=== PATIENT | female | born 2000 | race American Indian/Alaskan Native ===

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

== ENCOUNTER 2020-10-29 06:35 | Emergency (ER) | payer MEDICAID ==
[2020-10-29 06:57] VITALS: BP 113/69
[2020-10-29 07:22] LABS: Bilirubin,Urine NEG (Negative); Blood,Urine SM (Negative); Color,Urine Yellow (Yellow); Mucus,Urine 3+ /HPF; Urobilinogen,Urine < 2.0 mg/dL (<2.0)
[2020-10-29 08:09] LABS: Basophils % (Auto) 0.3 % (0.0-1.8); Eosinophils # (Auto) 0.1 K/mm3 (0.0-0.4); Eosinophils % (Auto) 0.8 % (0.0-4.3); Hematocrit 36.7 % (30.3-42.9); Hemoglobin 12.2 gm/dl (10.1-14.3); Lymphocytes # (Auto) 1.9 K/mm3 (1.2-5.4); Lymphocytes % (Auto) 20.6 % (13.4-35.0); Mean Corpuscular HGB Conc 33 % (30-34); Mean Corpuscular Volume 99 fl (79-97); Monocytes # (Auto) 0.4 K/mm3 (0.0-0.8); Monocytes % (Auto) 4.6 % (0.0-7.3); Platelet Count 234 K/mm3 (140-440); Red Blood Count 3.72 M/mm3 (3.65-5.03); Red Cell Distribution Width 12.8 % (13.2-15.2)
[2020-10-29 08:40] LABS: Blood Urea Nitrogen 6 mg/dL (7-17); Calcium 8.4 mg/dL (8.4-10.2); Hemolysis Index 3
[2020-10-29 09:00] LABS: BUN/Creatinine Ratio 15
--- NOTE | 2020-10-29 10:09 | Ultrasound Report ---
FIRSTTRIMESTER OBSTETRIC ULTRASOUND HISTORY: Vaginal bleeding in , spotting for one day COMPARISON: None. TECHNIQUE: Routine transabdominal OB ultrasound performed. FINDINGS: Uterus: Mildly enlarged measuring 10.4 x 7.8 x 7.8 cm. Gestational Sac: Well-defined oval shape and intrauterine in location. Yolk Sac: Normal in appearance. Fetus/Embryo: Mandan-rump length of 2.32 cm, corresponding to an estimated gestational age of 9 weeks 0 days. Embryonic/ anatomy is too small for evaluation. Embryonic/ cardiac activity: 172bpm Placenta: Too small for evaluation. Amniotic fluid volume: Subjectively appropriate for gestational age. Ovaries: The right ovary is normal in size and appearance with normal blood flow, measuring 2.9 x 1. 7 x 2.0 cm. The left ovary is normal in size and appearance with normal blood flow, measuring 3.0 x 2.0 x 2.6 cm. A slightly complex left ovarian cyst is identified measuring 1.6 x 0.5 cm. Additional findings: Small subchorionic hemorrhage is identified. IMPRESSION Early live intrauterine . Small subchorionic hemorrhage. Slightly complex left ovarian cyst measuring 1.6 x 0.5 cm. Signer Name: Ugo Albarran Jr, MD Signed: 10/29/2020 10:05 AM Workstation Name: [id number]
--- NOTE | 2020-10-29 10:13 | Emergency Department Report ---
ED Female HPI - General Chief complaint: Vaginal Bleeding Stated complaint: SPOTTING/CRAMPS/9 WKS Time Seen by Provider: 10/29/20 08:15 Source: patient Mode of arrival: Ambulatory Limitations: No Limitations - History of Present Illness Initial comments: Patient is a 20-year-old that comes to the ER with vaginal bleeding during . She states that she is 9 weeks . She gets her care from [facility]. Patient reports light vaginal bleeding. She is ambulatory nontoxic in the emergency room. She denies any vaginal discharge. She denies abdominal pain or back pain per se. Patient states she just has mild cramping. Patient received a change of shift and labs noted as ordered by overnight staff. Ultrasound ordered and pending. MD Complaint: vaginal bleeding -: Gradual Improves with: none Worsens with: none Are you Now?: Yes Associated Symptoms: denies other symptoms, vaginal bleeding - Related Data Previous Rx's Medication Instructions Recorded Last Taken Type Ondansetron [Zofran Odt] 4 mg PO Q8HR PRN #30 tab.rapdis 01/15/17 Unknown Rx Vit No.112/Folate No6 1 mg PO QDAY #30 tab.chew 01/15/17 Unknown Rx [Prenate Chewable Tablet] Allergies Allergy/AdvReac Type Severity Reaction Status Date / Time peanut Allergy Hives Verified 10/29/20 06:53 ED Review of Systems ROS: Stated complaint: SPOTTING/CRAMPS/9 WKS Other details as noted in HPI Comment: All other systems reviewed and negative ED Past Medical Hx - Past Medical History Previous Medical History?: Yes Hx Hypertension: Yes Hx Asthma: Yes - Surgical History Past Surgical History?: Yes - Family History Family history: no significant - Social History Smoking Status: Never Smoker Substance Use Type: None - Medications Home Medications: Home Medications Medication Instructions Recorded Confirmed Last Taken Type Ondansetron [Zofran Odt] 4 mg PO Q8HR PRN #30 tab.rapdis 01/15/17 Unknown Rx Vit No.112/Folate No6 1 mg PO QDAY #30 tab.chew 01/15/17 Unknown Rx [Prenate Chewable Tablet] ED Physical Exam - General Limitations: No Limitations General appearance: alert, in no apparent distress - Head Head exam: Present: atraumatic, normocephalic - Eye Eye exam: Present: normal appearance - ENT ENT exam: Present: mucous membranes moist - Neck Neck exam: Present: normal inspection - Respiratory Respiratory exam: Present: normal lung sounds bilaterally. Absent: respiratory distress - Cardiovascular Cardiovascular Exam: Present: regular rate, normal rhythm. Absent: systolic murmur, diastolic murmur, rubs, gallop - GI/Abdominal GI/Abdominal exam: Present: soft, normal bowel sounds - Extremities Exam Extremities exam: Present: normal inspection - Back Exam Back exam: Present: normal inspection - Neurological Exam Neurological exam: Present: alert, oriented X3 - Psychiatric Psychiatric exam: Present: normal affect, normal mood - Skin Skin exam: Present: warm, dry, intact, normal color. Absent: rash ED Course Vital Signs 10/29/20 06:45 Temperature 98.6 F Pulse Rate 91 H Respiratory 16 Rate Blood Pressure 113/69 [Right] O2 Sat by Pulse 100 Oximetry ED Medical Decision Making - Lab Data Result diagrams: 10/29/20 07:26 10/29/20 07:26 - Radiology Data Radiology results: report reviewed, image reviewed - Medical Decision Making Lab Results 10/29/20 10/29/20 10/29/20 Range/Units 07:00 07:26 07:26 WBC 9.0 (4.5-11.0) K/mm3 RBC 3.72 (3.65-5.03) M/mm3 Hgb 12.2 (10.1-14.3) gm/dl Hct 36.7 (30.3-42.9) % MCV 99 H (79-97) fl MCH 33 H (28-32) pg MCHC 33 (30-34) % RDW 12.8 L (13.2-15.2) % Plt Count 234 (140-440) K/mm3 Lymph % (Auto) 20.6 (13.4-35.0) % [place] % (Auto) 4.6 (0.0-7.3) % Eos % (Auto) 0.8 (0.0-4.3) % Baso % (Auto) 0.3 (0.0-1.8) % Lymph # (Auto) 1.9 (1.2-5.4) K/mm3 [place] # (Auto) 0.4 (0.0-0.8) K/mm3 Eos # (Auto) 0.1 (0.0-0.4) K/mm3 Baso # (Auto) 0.0 (0.0-0.1) K/mm3 Seg Neutrophils % 73.7 H (40.0-70.0) % Seg Neutrophils # 6.7 (1.8-7.7) K/mm3 Sodium (137-145) mmol/L Potassium (3.6-5.0) mmol/L Chloride (98-107) mmol/L Carbon Dioxide (22-30) mmol/L Anion Gap mmol/L BUN (7-17) mg/dL Creatinine (0.6-1.2) mg/dL Estimated GFR ml/min BUN/Creatinine Ratio % Glucose (65-100) mg/dL Calcium (8.4-10.2) mg/dL HCG, Quant [id number] H (0-4) mIU/mL Urine Color Yellow (Yellow) Urine Turbidity Hazy (Clear) Urine pH 6.0 (5.0-7.0) Ur Specific [place] 1.021 (1.003-1.030) Urine Protein 30 mg/dl (Negative) mg/dL Urine Glucose (UA) Neg (Negative) mg/dL Urine Ketones Neg (Negative) mg/dL Urine Blood Sm (Negative) Urine Nitrite Neg (Negative) Urine Bilirubin Neg (Negative) Urine Urobilinogen < 2.0 (<2.0) mg/dL Ur Leukocyte Esterase Tr (Negative) Urine WBC (Auto) 6.0 (0.0-6.0) /HPF Urine RBC (Auto) 21.0 (0.0-6.0) /HPF U Epithel Cells (Auto) 8.0 (0-13.0) /HPF Urine Mucus 3+ /HPF Blood Type 10/29/20 10/29/20 Range/Units 07:26 07:26 WBC (4.5-11.0) K/mm3 RBC (3.65-5.03) M/mm3 Hgb (10.1-14.3) gm/dl Hct (30.3-42.9) % MCV (79-97) fl MCH (28-32) pg MCHC (30-34) % RDW (13.2-15.2) % Plt Count (140-440) K/mm3 Lymph % (Auto) (13.4-35.0) % [place] % (Auto) (0.0-7.3) % Eos % (Auto) (0.0-4.3) % Baso % (Auto) (0.0-1.8) % Lymph # (Auto) (1.2-5.4) K/mm3 [place] # (Auto) (0.0-0.8) K/mm3 Eos # (Auto) (0.0-0.4) K/mm3 Baso # (Auto) (0.0-0.1) K/mm3 Seg Neutrophils % (40.0-70.0) % Seg Neutrophils # (1.8-7.7) K/mm3 Sodium 136 L (137-145) mmol/L Potassium 3.7 (3.6-5.0) mmol/L Chloride 101.1 (98-107) mmol/L Carbon Dioxide 24 (22-30) mmol/L Anion Gap 15 mmol/L BUN 6 L (7-17) mg/dL Creatinine 0.4 L (0.6-1.2) mg/dL Estimated GFR > 60 ml/min BUN/Creatinine Ratio 15 % Glucose 85 (65-100) mg/dL Calcium 8.4 (8.4-10.2) mg/dL HCG, Quant (0-4) mIU/mL Urine Color (Yellow) Urine Turbidity (Clear) Urine pH (5.0-7.0) Ur Specific [place] (1.003-1.030) Urine Protein (Negative) mg/dL Urine Glucose (UA) (Negative) mg/dL Urine Ketones (Negative) mg/dL Urine Blood (Negative) Urine Nitrite (Negative) Urine Bilirubin (Negative) Urine Urobilinogen (<2.0) mg/dL Ur Leukocyte Esterase (Negative) Urine WBC (Auto) (0.0-6.0) /HPF Urine RBC (Auto) (0.0-6.0) /HPF U Epithel Cells (Auto) (0-13.0) /HPF Urine Mucus /HPF Blood Type O POSITIVE Vital Signs 10/29/20 06:45 Temperature 98.6 F Pulse Rate 91 H Respiratory 16 Rate Blood Pressure 113/69 [Right] O2 Sat by Pulse 100 Oximetry Labs noted. Patient Rh+. Ultrasound noted. No ectopic. Small chorionic hemorrhage. Patient cleared for discharge after ultrasound. However, cannot be found by the RN. - Differential Diagnosis ro ectopic/ab Critical care attestation.: If time is entered above; I have spent that time in minutes in the direct care of this critically ill patient, excluding procedure time. ED Disposition Clinical Impression: Vaginal bleeding during Disposition: TO HOME OR SELFCARE Is pt being admited?: No Does the pt Need Aspirin: No Condition: Stable Additional Instructions: PELVIC REST TYLENOL FOR PAIN FOLLOW UP WITH OBGYN IN 48 HOURS FOR RECHECK REFERRAL BELOW Referrals: CHRIS HARDY MD [Staff Physician] - 3-5 Days Time of Disposition: 10:13
== END 2020-10-29 11:04 | disposition home or self-care (01) ==
LOC: ED 06:35
DX: O20.8 Other hemorrhage in early pregnancy (principal); I10 Essential (primary) hypertension; J45.909 Unspecified asthma, uncomplicated; Z3A.09 9 weeks gestation of pregnancy; Z79.899 Other long term (current) drug therapy; Z91.010 Allergy to peanuts
CPT/HCPCS: 36415; 76801; 80048; 81001; 84702; 85025; 86900; 86901

== ENCOUNTER 2021-01-25 11:26 | Emergency (ER) | payer MEDICAID | END 2021-01-25 12:36 | LOC: ED 11:26 | DX: R51.9 Headache, unspecified (principal); Z53.21 Procedure and treatment not carried out due to patient leaving prior to being seen by health care provider ==

== ENCOUNTER 2021-01-25 13:00 | Emergency (ER) | payer MEDICAID ==
[2021-01-25 13:07] VITALS: BP 130/87
[2021-01-25] MEDS ORDERED: SODIUM CHLORIDE 0.9% 1000 ML 1,000 ML IV ONE (13:31)
[2021-01-25] MEDS ORDERED: METOCLOPRAMIDE 10 MG/2 ML INJ IV ONE (13:49)
[2021-01-25] MEDS ORDERED: ACETAMINOPHEN 325 MG TAB PO ONE (13:49)
[2021-01-25] MEDS ORDERED: MAGNESIUM SULFATE 1 GM in SODIUM CHLORIDE 0.9% 50 ML IV ONE (13:49)
[2021-01-25] MEDS ORDERED: MAGNESIUM SULFATE 2 GM/50 ML BAG IV ONE (13:56)
[2021-01-25] MEDS ORDERED: diphenhydrAMINE 50 MG/ML VIAL IV ONE (13:56)
--- NOTE | 2021-01-25 13:56 | Emergency Department Report ---
ED Headache HPI - General Chief Complaint: Headache Stated Complaint: PAINFUL HEADACHE Time Seen by Provider: 01/25/21 13:16 - History of Present Illness Initial Comments: 20-year-old -[place] female that is currently 22 weeks presents to the emergency room for persistent headache she has had for about 17 hours. Patient states she has been taking acetaminophen without much relief. Patient denies any intensity of headache within the first hour or 2. Patient states that she has been having headaches daily since she has been . Patient admits to nausea and dry heaving. Patient reports she has less than 3 hours of screen time, she denies any head injury. She reports that her headache is located in the frontal area. She started having nasal drainage since his headache started. Patient reports that she will get blurred vision when her headache increases. She does report wearing glasses. Timing/Duration: constant, other Quality: severe, sharp (17 hours), throbbing Head Injury Location: frontal Recent Head Trauma: no recent headache/trauma, frequent headaches Modifying Factors: improves with: exposure to light Associated Symptoms: nausea/vomiting (No vomiting), nasal drainage, vision changes (Blurred vision). denies: fatigue, facial pain, fever/chills, flushing, loss of consciousness, sinus infection, stiff neck Allergies/Adverse Reactions: Allergies peanut Allergy (Verified 10/29/20 06:53) Hives Home Medications: Ambulatory Orders Ondansetron [Zofran Odt] 4 mg PO Q8HR PRN #30 tab.rapdis 01/15/17 Vit No.112/Folate No6 [Prenate Chewable Tablet] 1 mg PO QDAY #30 tab.chew 01/15/17 ED Review of Systems ROS: Stated complaint: PAINFUL HEADACHE Other details as noted in HPI ED Past Medical Hx - Past Medical History Previous Medical History?: Yes Hx Hypertension: No Hx Diabetes: No Hx Deep Vein Thrombosis: No Hx Renal Disease: No Hx Sickle Cell Disease: No Hx Seizures: No Hx Asthma: No Hx HIV: No Additional medical history: Vaginal delivery x 1 - Surgical History Past Surgical History?: No - Social History Smoking Status: Never Smoker Substance Use Type: None - Medications Home Medications: Home Medications Medication Instructions Recorded Confirmed Last Taken Type Ondansetron [Zofran Odt] 4 mg PO Q8HR PRN #30 tab.rapdis 07/22/17 Unknown Rx Vit No.112/Folate No6 1 mg PO QDAY #30 tab.chew 01/15/17 Unknown Rx [Prenate Chewable Tablet] ED Physical Exam - General Limitations: No Limitations General appearance: alert - Head Head exam: Present: atraumatic, normocephalic - Eye Eye exam: Present: normal appearance, EOMI - ENT ENT exam: Present: normal external ear exam - Neck Neck exam: Present: normal inspection, full ROM - Respiratory Respiratory exam: Present: normal lung sounds bilaterally. Absent: respiratory distress, accessory muscle use - Cardiovascular Cardiovascular Exam: Present: regular rate - GI/Abdominal GI/Abdominal exam: Present: soft, normal bowel sounds - Extremities Exam Extremities exam: Present: normal inspection - Back Exam Back exam: Present: normal inspection - Neurological Exam Neurological exam: Present: alert, oriented X3, normal gait - Expanded Neurological Exam Expanded Cranial nerves: EOM's Intact: Normal, Gag Reflex: Normal, Tongue Deviation: Normal, Nystagmus: Normal, Facial Sensation: Normal, Facial Palsy with Forehead Movement: Normal, Facial Palsy without Forehead Movement: Normal Cerebellar function: Finger to Nose: Normal, Heel to Mack: Normal, Romberg: Normal Upper motor neuron: Lawson Neglect: Normal, Pronator Drift: Normal, Babinski Sign: Normal, Sensory Extinction: Normal Sensory exam: Upper Extremity Light Touch: Normal, Upper Extremity Pin Prick: Normal, Upper Extremity Temperature: Normal, UE 2 Point Discrimination: Normal, Lower Extremity Light Touch: Normal, Lower Extremity Pin Prick: Normal, Lower Extremity Temperature: Normal, LE 2 Point Discrimination: Normal Motor strength exam: RUE: 4, LUE: 4, RLE: 4, LLE: 4 Best Eye Response ([place]): (4) open spontaneously Best Motor Response ([place]): (6) obeys commands Best Verbal Response ([place]): (5) oriented [place] Total: 15 - Psychiatric Psychiatric exam: Present: normal affect, normal mood - Skin Skin exam: Present: warm, dry, intact, normal color. Absent: rash ED Course Vital Signs 01/25/21 01/25/21 13:03 14:26 Temperature 97.9 F Pulse Rate 81 Respiratory 20 20 Rate Blood Pressure 130/87 O2 Sat by Pulse 100 Oximetry - Reevaluation(s) Reevaluation #1: 01/25/21 15:55 Patient reports her headache feels much better. She rates it at 3 out of 10 from a 10 out of 10 ED Medical Decision Making - Medical Decision Making 20-year-old -[place] female that is currently 22 weeks presents to the emergency room for persistent headache she has had for about 17 hours. Patient states she has been taking acetaminophen without much relief. Patient denies any intensity of headache within the first hour or 2. Patient states that she has been having headaches daily since she has been . Patient admits to nausea and dry heaving. Patient reports she has less than 3 hours of screen time, she denies any head injury. She reports that her headache is located in the frontal area. She started having nasal drainage since his headache started. Patient reports that she will get blurred vision when her h eadache increases. She does report wearing glasses. Discussed with Dr. Joan Giang, ER attending. He recommends normal saline, Reglan, Benadryl, magnesium sulfate IV, lidocaine intranasal. Patient tolerated intranasal lidocaine treatment for headache. Patient reports her headache has improved from a 10 out of 10 to now a 3 out of 10. Patient denies any nausea at this time. Discussed with patient seeking needs to increase her fluid intake take her Tylenol and follow-up with her ASSOCIATE SOFTWARE APPLICATION ENGINEER. Patient verbalized understanding. Critical care attestation.: If time is entered above; I have spent that time in minutes in the direct care of this critically ill patient, excluding procedure time. ED Disposition Clinical Impression: Headache Qualifiers: Headache type: unspecified Headache chronicity pattern: acute headache Intractability: intractable Qualified Code(s): R51.9 - Headache, unspecified Disposition: DC- TO HOME OR SELFCARE Is pt being admited?: No Does the pt Need Aspirin: No Condition: Stable Additional Instructions: Please be sure to increase your fluid intake. Tylenol as needed for pain. Follow-up with your ASSOCIATE SOFTWARE APPLICATION ENGINEER. Referrals: Your, ASSOCIATE SOFTWARE APPLICATION ENGINEER [Other] - 3-5 Days Forms: Work/School Release Form(ED)
[2021-01-25] MEDS ORDERED: LIDOCAINE-MPF (1%) 10 MG/1 ML VIAL 5 ML INFILTRATI ONE (13:57)
--- NOTE | 2021-01-25 15:15 | Event Note ---
Date of service: 01/25/21 Face to Face: The patient was evaluated in the emergency department for symptoms described in the history of present illness. He/she was evaluated in the context of the global COVID-19 pandemic, which necessitated consideration that the patient might be at risk for infection with the virus that causes COVID-19. Institutional protocols and algorithms that pertain to the evaluation of patients at risk for COVID-19 are in a state of rapid change based on information released by regulatory bodies including the CDC and federal and state organizations. These policies and algorithms were followed during the patient's care in the emergency department. Please note that these policies, procedures and recommendations changed on a rapid basis. Patient is a 20-year-old female who is currently , approximately 22 weeks gestation, presenting to the ER with headache. The headache is frontal. The headache is not sudden or thunderclap in nature. The headache is not maximal in intensity. The headache is not described as the worst headache of her life. She has been having frequent almost daily headaches since the start of her . There is no neck pain or neck stiffness. There is no loss of vision. There is no ataxia. There is no extremity weakness or numbness. Patient states she wears glasses. No Covid exposure that she is aware of. No loss of taste or smell. No facial droop. Tongue midline. Extraocular movements intact bilaterally. Facial sensation intact to light touch in V1, V2, V3 distribution bilaterally. 5 and a 5 strength in 4 extremities. Sensation intact to light touch in 4 extremities. There is no past-pointing. Walks with a steady gait. Patient treated with Reglan, Benadryl, magnesium sulfate, and acetaminophen, as well as intranasal lidocaine. On multiple reassessments, she endorsed that she was feeling improved, is noted to be eating without difficulty, smiling, and playing on her cellular phone. On her final reassessments with the physician assistant operator, she endorsed readiness for discharge. Given chronicity of symptoms, nonfocal and benign neurologic examination, clinical improvement, lack of red flag symptomatology, this is very unlikely to be venous sinus thrombosis, intracranial hemorrhage, or CVA. The patient has a GCS of 15, with an NIH score of 0. She is suitable for discharge with outpatient follow-up. Given relatively young gestational age, lack of significant hypertension, resolution of symptoms, benign neurologic examination, preeclampsia is very unlikely Vital Signs 01/25/21 01/25/21 13:03 14:26 Temperature 97.9 F Pulse Rate 81 Respiratory 20 20 Rate Blood Pressure 130/87 O2 Sat by Pulse 100 Oximetry
== END 2021-01-25 15:50 | disposition home or self-care (01) ==
LOC: ED 13:00
DX: R51.9 Headache, unspecified (principal); Z3A.22 22 weeks gestation of pregnancy; Z91.040 Latex allergy status
CPT/HCPCS: 96365; 96375; 99282; J1200; J2765; J3475; J7030

== ENCOUNTER 2021-12-28 22:54 | Emergency (ER) | payer MEDICAID ==
[2021-12-28] MEDS ORDERED: SODIUM CHLORIDE 0.9% 1000 ML 1,000 ML IV ONE (23:09)
[2021-12-28] MEDS ORDERED: HYDROmorphone 0.5 MG/0.5 ML INJ IV ONE (23:09)
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
[2021-12-29] LABS: Basophils % (Auto) 0.4 % (0.0-1.8); Eosinophils # (Auto) 0.1 K/mm3 (0.0-0.4); Eosinophils % (Auto) 0.8 % (0.0-4.3); Hematocrit 41.3 % (30.3-42.9); Hemoglobin 13.3 gm/dl (10.1-14.3); Lymphocytes # (Auto) 2.5 K/mm3 (1.2-5.4); Mean Corpuscular HGB Conc 32 % (30-34); Mean Corpuscular Volume 95 fl (79-97); Monocytes # (Auto) 0.4 K/mm3 (0.0-0.8); Monocytes % (Auto) 4.8 % (0.0-7.3); Platelet Count 293 K/mm3 (140-440); Red Blood Count 4.36 M/mm3 (3.65-5.03); Red Cell Distribution Width 15.3 % (13.2-15.2)
[2021-12-29 00:01] LABS: Alanine Aminotransferase 14 units/L (7-56); Albumin 4.4 g/dL (3.9-5); BUN/Creatinine Ratio 8; Blood Urea Nitrogen 6 mg/dL (7-17); Hemolysis Index 20
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
[2021-12-29 02:59] LABS: Mucus,Urine FEW /HPF; WBC,Urine < 1.0 /HPF (0.0-6.0)
[2021-12-29 03:03] LABS: Bilirubin,Urine Negative (Negative); Blood,Urine Negative (Negative); Color,Urine Yellow (Yellow); HCG Qualitative,Urine Negative (Negative); Protein,Urine <15 mg/dL mg/dL (Negative)
[2021-12-29 03:04] VITALS: BP 131/88
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
== END 2021-12-29 05:07 | disposition home or self-care (01) ==
LOC: ED 22:54
DX: S32.009A Unspecified fracture of unspecified lumbar vertebra, initial encounter for closed fracture (principal); T14.8XXA Other injury of unspecified body region, initial encounter; I10 Essential (primary) hypertension; J45.909 Unspecified asthma, uncomplicated; Z79.899 Other long term (current) drug therapy; V89.2XXA Person injured in unspecified motor-vehicle accident, traffic, initial encounter; Y93.89 Activity, other specified; Y92.89 Other specified places as the place of occurrence of the external cause; Y99.8 Other external cause status
CPT/HCPCS: 36415; 70450; 71260; 72125; 73060; 73090; 73130; 74177; 80053; 81001; 81025; 84703; 85025; 86850; 86900; 86901; 96361; 96374; 99285; J1170; J7030; Q9967; 99283